=== PATIENT | female | born 1995 | race Caucasian/White ===

== ENCOUNTER 2018-03-30 21:05 | Emergency (ER) | payer OTHER ==
[2018-03-30] MEDS ORDERED: DEXAMETHASONE 4 MG/ML VIAL ONE (21:16)
[2018-03-30] MEDS ORDERED: LORazepam 2 MG/ML INJ ONE (21:17)
[2018-03-30] MEDS ORDERED: LORazepam 2 MG/ML INJ IVP ONE (21:18)
[2018-03-30] MEDS ORDERED: NS 1,000 ML IV ONE (21:18)
[2018-03-30] MEDS ORDERED: DEXAMETHASONE 10 MG/ML VIAL IVP ONE (21:18)
--- NOTE | 2018-03-30 21:18 | EDPHY ---
H & P Stated Complaint: Face feels "funny" after working out, LOGAN Source: Patient Exam Limitations: No limitations - Personal History LMP (Females 10-55): Now - Medical/Surgical History Hx Asthma: No Hx Chronic Respiratory Disease: No Hx Diabetes: No Hx Cardiac Disease: No Hx Renal Disease: No Hx Cirrhosis: No Hx Alcoholism: No Hx HIV/AIDS: No Hx Splenectomy or Spleen Trauma: No Other PMH: Head Aches - Social History Smoking Status: Never smoked Time Seen by Provider: 03/30/18 21:13 HPI/ROS: HPI: This is a 22-year-old female who presents with Chief Complaint: Face feels "funny" after working out, LOGAN Location: Left side of jaw and face Quality:"Feels funny" Duration: Prior to arrival Signs and Symptoms: no fever, no nausea, no vomiting, no photophobia, no noise sensitivity, no neck stiffness, no ear pain, no tinnitus, no nasal congestion, no sinus pressure, no weakness, no radiation, no aura Timing: Acute Severity: Moderate Context: Patient reports that she had oatmeal with protein powder and then rice cakes today. She went to the gym this evening and was weightlifting for approximately 1.5 hr. She then started to feel pain in her left side of her jaw and then numbness that has lasted approximately 30 min to 1 hr. She denies any weakness, radiation, upper respiratory symptoms, fever, rashes. She reports that she feels fine. She has been getting migraine headaches more frequently than normal and has a headache at this time. She takes Advil without relief of her headaches. Patient is a student at [employer]. She is currently on her menses. Modifying Factors: None Comment: ROS: A comprehensive 10 system review of systems is otherwise negative aside from elements mentioned in the history of present illness. MEDICAL/SURGICAL/SOCIAL HISTORY: Medical history: Migraine headache. Surgical history: Denies Social history: Originally from [place]. Family history noncontributory. CONSTITUTIONAL: Extremely well-appearing young adult white female awake and alert, no obvious distress HEENT: Atraumatic and normocephalic, PERRL, EOMI. Nares patent; no rhinorrhea; no nasal mucosal edema. Tympanic membranes clear. Oropharynx clear, no exudate and moist pink mucosa. Airway patent. No lymphadenopathy. No meningismus. Cardiovascular: Normal S1/S2, regular rate, regular rhythm, without murmur rub or gallop. PULMONARY/CHEST: Symmetrical and nontender. Clear to auscultation bilaterally. Good air movement. No accessory muscle usage. ABDOMEN: Soft, nondistended, nontender, no rebound, no guarding, no peritoneal signs, no masses or organomegaly. No CVAT. EXTREMITIES: 2/2 pulses, strength 5/5, no deformities, no clubbing, no cyanosis or edema. NEUROLOGICAL: no focal neuro deficits. GCS 15. Cranial nerves 2-12 grossly intact. Normal [id number] test. Normal cerebellar testing. SKIN: Warm and dry, no erythema. no rash. Good capillary refill. (Bernie Del Angel) Constitutional: Initial Vital Signs Temperature (C) 36.7 C 03/30/18 21:08 Heart Rate 87 03/30/18 21:08 Respiratory Rate 16 03/30/18 21:08 Blood Pressure 149/90 H 03/30/18 21:08 O2 Sat (%) 96 03/30/18 21:08 O2 Delivery Mode Room Air Allergies/Adverse Reactions: amoxicillin Allergy (Verified 03/30/18 21:08) Home Medications: Medication Instructions Recorded Acet/Caffeine/Buta Fioricet 1 each PO Q6 PRN #10 tab 03/30/18 [Fioricet (*)] Medical Decision Making ED Course/Re-evaluation: Vital signs reviewed and stable upon arrival. IV access and laboratory studies ordered Patient given 1 L normal saline, IV Decadron 10 mg and IV Ativan 1 mg 2144: Mother called from [place] requesting head CT scan be performed. 2203: Called by Dr. Quigley who advised head CT scan shows no acute intracranial process. Labs reviewed. No signs of leukocytosis/anemia/platelet dysfunction/ANU/ elevated LFTs/electrolyte imbalance/. 2254: Reassessed patient who adamantly declines me speaking with her mother on the phone and relates that she will tell her mother what we reviewed as far as her laboratory studies and head CT scan. Patient reports improvement in her symptoms. Patient reports that she normally takes Advil for migraines but this is not working. She is requesting a stronger medication for headaches as well as a note for school tomorrow. No signs of CVA/TIA/Martinez's palsy/temporal arteritis/[place] Ortega syndrome. This patient was seen under the supervision of my secondary supervising physician. I evaluated care for this patient independently. Discussed this patient with Dr. Williamson who did not see the patient. (Bernie Del Angel) I did not see this patient while she was in the emergency department. However her care discussed with the PA while the patient was in the department. I agree with treatment plan and management (Quinn Williamson) Differential Diagnosis: Weakness including but not limited to electrolyte abnormality, depression, anxiety, CVA, spinal cord abnormality, and infectious causes. (Bernie Del Angel) - Data Points Laboratory Results: Laboratory Results 03/30/18 21:26 03/30/18: Medications Given: Discontinued Medications Dexamethasone (Decadron Injection) 10 mg IVP EDNOW ONE Stop: 03/30/18:19 Last Admin: 03/30/18 21:24 Dose: 10 mg Sodium Chloride (Ns) 1,000 mls @ 0 mls/hr IV ONCE ONE; Wide Open PRN Reason: Protocol Stop: 03/30/18: Last Admin: 03/30/18 21: Dose: 1,000 mls Lorazepam (Ativan Injection) 1 mg IVP EDNOW ONE Stop: 03/30/18: Last Admin: 03/30/18: Dose: 1 mg Departure - Departure Disposition: Home, Routine, Self-Care Clinical Impression: Migraine headache without aura Condition: Good Instructions: Cluster Headache (ED), Migraine Headache (ED), Paresthesia (ED) Additional Instructions: Rest as much as possible until you are feeling better. Consume a minimum of 8-10 glasses of water or electrolyte fluid replacement drinks that include Gatorade, Powerade, Pedialyte. Take Fioricet every 6 hr as needed for headache. Follow-up with Neurology in the next 5-7 days to establish care for migraine headaches and paresthesias. Return to the ER immediately if you have progressive headaches, neurologic deficits, gait abnormality, visual disturbance, slurred speech, or any other symptom that concerns you. Referrals: [facility] [Outside] - As per Instructions [facility] [Clinic] - As per Instructions Stand Alone Forms: School Excuse Prescriptions: Acet/Caffeine/Buta Fioricet [Fioricet (*)] 1 each PO Q6 PRN #10 tab PRN Reason: Headache
[2018-03-30 21:34] LABS: PLATELET COUNT 265 10^3/uL (150-400)
[2018-03-30 23:12] VITALS: BP 111/65
== END 2018-03-30 23:11 | disposition home or self-care (01) ==
DX: G43.909 Migraine, unspecified, not intractable, without status migrainosus (principal); E86.9 Volume depletion, unspecified
CPT/HCPCS: 96374; J1100; J2060